=== PATIENT | female | born 2000 | race Caucasian/White ===

== ENCOUNTER 2018-01-03 20:51 | Emergency (ER) | payer OTHER ==
[2018-01-03] MEDS ORDERED: TETRACAINE HCL 0.5% OPH SOLN 4 ML ONE (21:27)
[2018-01-03] MEDS ORDERED: TETRACAINE HCL 0.5% OPH SOLN 4 ML OU ONE (21:27)
--- NOTE | 2018-01-03 21:55 | ER Document Report ---
ED General - General Chief Complaint: Chemical Exposure in Eye Stated Complaint: LEFT EYE IRRITATION Time Seen by Provider: 01/03/18 21:21 Notes: Patient is a 17-year-old female without chronic medical problems who presents with pain and irritation to her left eye after accidentally spraying her left eye with a spray deodorant. This occurred approximately 2 hours prior to arrival. She describes a burning, constant, stinging pain to the eye since that time. She has not tried anything for relief of the pain. Nothing worsens the pain. No history of similar injuries in the past. She does not use contact lenses. She has not contacted her general doctor regarding today's concerns. TRAVEL OUTSIDE OF THE [place] IN LAST 30 DAYS: No Past Medical History - General Information source: Patient - Social History Smoking Status: Never Smoker Frequency of alcohol use: None Drug Abuse: None Lives with: Friend Family History: Reviewed & Not Pertinent Patient has suicidal ideation: No Patient has homicidal ideation: No Renal/ Medical History: Denies: Hx Peritoneal Dialysis Review of Systems - Review of Systems Notes: Constitutional: Negative for fever. HENT: Negative for sore throat. Eyes: Positive for left eye irritation Cardiovascular: Negative for chest pain. Respiratory: Negative for shortness of breath. Gastrointestinal: Negative for abdominal pain, vomiting or diarrhea. Genitourinary: Negative for dysuria. Musculoskeletal: Negative for back pain. Skin: Negative for rash. Neurological: Negative for headaches, weakness or numbness. 10 point ROS negative except as marked above and in HPI. Physical Exam - Vital signs Vitals: Temp Pulse Resp BP Pulse Ox 98.4 F 74 16 125/76 100 01/03/18 20:58 01/03/18 20:58 01/03/18 20:58 01/03/18 20:58 01/03/18 20:58 Interpretation: Normal Notes: PHYSICAL EXAMINATION: GENERAL: Appears moderately uncomfortable but in no acute distress HEAD: Atraumatic, normocephalic. EYES: Extraocular motions intact bilaterally. Pupillary reflex intact bilaterally. Visual acuity 20/20 bilaterally at bedside testing. There is diffuse conjunctival injection and erythema to the left eye. No proptosis. ENT: Moist mucous membranes. NECK: Normal range of motion LUNGS: Normal work of breathing HEART: 2+ radial pulses bilaterally EXTREMITIES: no pitting or edema. No cyanosis. NEUROLOGICAL: No focal neurological deficits. Moves all extremities spontaneously and on command. PSYCH: Moderately anxious SKIN: Warm, Dry, normal turgor, no rashes or lesions noted. Course - Re-evaluation Re-evalutation: 01/03/18 21:54 Patient presents with a contact irritation with an associated conjunctivitis of the left eye after accidentally spraying herself in the eye with a spray deodorant. Visual acuity intact the bedside, 20/20 bilaterally. Extraocular motions intact. Pupillary reflex intact. Patient had improvement of pain after instillation of tetracaine in the eye. A full liter was irrigated into the eye using a Bennett lens with improvement of the patient's symptoms. I have advised the patient to follow-up with ophthalmology or optometry within the next 24 hours. Patient had significant improvement of her symptoms. At this time will discharge with return precautions and follow-up recommendations. Verbal discharge instructions given a the bedside and opportunity for questions given. Medication warnings reviewed. Patient is in agreement with this plan and has verbalized understanding of return precautions and the need for eye care follow-up in the next 24 hours. - Vital Signs Vital signs: Temp Pulse Resp BP Pulse Ox 98.5 F 83 18 115/62 100 01/03/18 22:54 01/03/18 22:54 01/03/18 22:54 01/03/18 22:54 01/03/18 22:54 Procedures - Eye Procedure Left Eye Irrigated w/ Saline (ccs): 1,000 Alcaine Drops Administered: Yes Acular drops administered: Left Discharge - Discharge Clinical Impression: Chemical exposure left eye, Irritation of left eye Condition: Good Disposition: HOME, SELF-CARE Additional Instructions: You may continue to have mild irritation of your left eye. I encouraged you to use Visine or a similar product to continue to moisturize the eye. Please follow-up with an bilingual administrative assistant or mandrel maker within the next 24 hours. Return if you have worsening or pain, decreased vision to the eye, swelling around the eye, or any other symptoms that are worrisome to you.
[2018-01-03 22:55] VITALS: BP 115/62
== END 2018-01-03 22:54 | disposition home or self-care (01) ==
LOC: ER 20:51
DX: T49.8X1A Poisoning by other topical agents, accidental (unintentional), initial encounter (principal); H10.9 Unspecified conjunctivitis
CPT/HCPCS: 99283; J3490